=== PATIENT | male | born 1970 | race Caucasian/White ===

== ENCOUNTER 2019-09-08 13:57 | Emergency (ER) | payer OTHER ==
[~2019-09-08] VITALS: Ht 167.6 cm; Wt 76.7 kg
[2019-09-08] MEDS ORDERED: PERCOCET 5-3251 EACH PO (14:12)
[2019-09-08] MEDS ORDERED: GLUCOPHAGE500 MG PO (14:12)
[2019-09-08] MEDS ORDERED: TRAMADOL 50 MG50 MG PO (14:12)
[2019-09-08] MEDS ORDERED: METFORMIN HCL500 M3 PO (14:12)
[2019-09-08 14:37] LABS: URINE BILIRUBIN NEGATIVE (Negative); URINE BLOOD TRACE (Negative); URINE CLARITY CLEAR; URINE COLOR YELLOW; URINE GLUCOSE-RANDOM 3+ (Negative); URINE KETONES NEGATIVE (Negative); URINE LEUKOCYTES-REFLEX NEGATIVE (Negative); URINE NITRITE-REFLEX NEGATIVE (Negative); URINE PROTEIN 3+ (Negative); URINE SPECIFIC GRAVITY >= 1.030 (1.005-1.030); URINE UROBILINOGEN 0.2 E.U./dl (0.2-1.0)
[2019-09-08 14:43] LABS: BACTERIA-REFLEX None Seen /HPF (None Seen); MUCUS 4-6 Moderate strn/LPF (None Seen); SQUAMOUS NONE SEEN /LPF (0-3); URINE RBC 0-2 Rare /HPF (0-2); URINE WBC-REFLEX 0-5 Rare /HPF (0-5)
[2019-09-08 14:44] LABS: CRYSTALS None Seen /LPF (None Seen); HYALINE CASTS >10 Many /LPF (None Seen)
[2019-09-08 14:55] LABS: ABSOLUTE EOSINOPHILS 0.1 thou/uL (0.0-0.7); ABSOLUTE LYMPHOCYTES 3.1 thou/uL (0.8-5.3); ABSOLUTE MONOCYTES 0.5 thou/uL (0.0-1.2); ABSOLUTE NEUTROPHILS 2.5 thou/uL (1.6-8.1); BASOPHILS 0.4 %; EOSINOPHILS 1.7 %; HEMATOCRIT 39.5 % (42.0-52.0); HEMOGLOBIN 13.3 gm/dL (14.0-18.0); MCH 26.9 pg (26.0-34.0); MCHC 33.8 g/dL (28.0-37.0); MCV 79.6 fL (80.0-100.0); MONOCYTES 7.8 %; NUCLEATED RBCS 0 /100WBC; PLATELET COUNT* 274 thou/uL (150-400); POLYS 40.1 %; RBC 4.96 mil/uL (4.50-6.00); RDW-CV 16.5 % (10.5-14.5); WBC 6.3 thou/uL (4.0-11.0)
[2019-09-08 15:08] LABS: POTASSIUM 4.7 mmol/L (3.5-5.1)
[2019-09-08 15:13] LABS: ALBUMIN 3.1 g/dL (3.4-5.0); TOTAL BILIRUBIN 0.3 mg/dL (<0.1-1.0); TOTAL PROTEIN 8.1 g/dL (6.4-8.2)
[2019-09-08] MEDS ORDERED: KEFLEX500 M1 PO (16:06)
[2019-09-08 16:37] VITALS: BP 156/99
== END 2019-09-08 16:38 | disposition home or self-care (01) ==
LOC: M.ERS 13:57
PROVIDERS: Nurse Practitioner Family
DX: E11.65 Type 2 diabetes mellitus with hyperglycemia (principal); M54.5 Low back pain; Z88.0 Allergy status to penicillin

== ENCOUNTER 2019-09-12 19:03 | Inpatient (IN) | payer OTHER ==
[~2019-09-12] VITALS: Ht 170.2 cm; Wt 72.1 kg
[~2019-09-12 19:03] MED LIST: GLUCOPHAGE500 MG PO; KEFLEX500 M1 PO; METFORMIN HCL500 M3 PO; PERCOCET 5-3251 EACH PO; TRAMADOL 50 MG50 MG PO
[2019-09-12 19:11] VITALS: BP 132/81
[2019-09-12 19:31] LABS: ABSOLUTE EOSINOPHILS 0.1 thou/uL (0.0-0.7); ABSOLUTE LYMPHOCYTES 2.4 thou/uL (0.8-5.3); ABSOLUTE MONOCYTES 0.5 thou/uL (0.0-1.2); ABSOLUTE NEUTROPHILS 2.3 thou/uL (1.6-8.1); BASOPHILS 0.7 %; EOSINOPHILS 2.4 %; HEMATOCRIT 38.6 % (42.0-52.0); LYMPHOCYTES 44.3 %; MCH 26.9 pg (26.0-34.0); MCHC 33.7 g/dL (28.0-37.0); MCV 79.9 fL (80.0-100.0); MONOCYTES 8.8 %; MPV 7.9 fl. (7.2-11.1); NUCLEATED RBCS 0 /100WBC; PLATELET COUNT* 273 thou/uL (150-400); POLYS 43.8 %; RBC 4.83 mil/uL (4.50-6.00); WBC 5.3 thou/uL (4.0-11.0)
[2019-09-12 19:35] LABS: CALCIUM 9.7 mg/dL (8.5-10.1); CREATININE 0.9 mg/dL (0.6-1.3); POTASSIUM 4.7 mmol/L (3.5-5.1)
[2019-09-12 19:42] LABS: ALBUMIN 2.8 g/dL (3.4-5.0); TOTAL BILIRUBIN 0.2 mg/dL (<0.1-1.0); TOTAL PROTEIN 7.5 g/dL (6.4-8.2)
[2019-09-12 19:51] LABS: URINE BILIRUBIN NEGATIVE (Negative); URINE BLOOD TRACE (Negative); URINE CLARITY CLEAR; URINE COLOR YELLOW; URINE GLUCOSE-RANDOM 3+ (Negative); URINE KETONES NEGATIVE (Negative); URINE LEUKOCYTES-REFLEX NEGATIVE (Negative); URINE NITRITE-REFLEX NEGATIVE (Negative); URINE PROTEIN 2+ (Negative); URINE UROBILINOGEN 0.2 E.U./dl (0.2-1.0)
[2019-09-12 20:01] LABS: HYALINE CASTS 4-10 Moderate /LPF (None Seen); MUCUS None Seen strn/LPF (None Seen)
[2019-09-12 20:02] LABS: BACTERIA-REFLEX None Seen /HPF (None Seen); URINE RBC 0-2 Rare /HPF (0-2); URINE WBC-REFLEX None Seen /HPF (0-5)
[2019-09-12 20:03] LABS: CRYSTALS None Seen /LPF (None Seen); SQUAMOUS NONE SEEN /LPF (0-3)
[2019-09-12] MEDS ORDERED: GLIPIZIDE 10 MG10 MG PO (22:24)
[2019-09-12] MEDS ORDERED: METFORMIN HCL500 M3 PO (22:24)
[2019-09-12 22:47] VITALS: BP 140/73
[2019-09-13] VITALS: BP 156/82
--- NOTE | 2019-09-13 05:24 | NUR ---
PATIENT ADMITTED TO UNIT AT APPROXIMATELY [id number] FROM THE ER. PATIENT ALERT AND ORIENTED X 4. VSS ON RA. PATIENT ORIENTED TO ROOM AND POLICIES AND FALL EDUCATION GIVEN AND FALL AGREEMENT SIGNED. PATIENT VERBALIZED UNDERSTANDING. IV IN RIGHT AC-NS @ 100ML/HR. ASSESSMENT CHARTED. PATIENT INSTRUCTED TO USE CALL LIGHT WHEN NEEDING ASSISTANCE. HOURLY ROUNDS MADE. WILL CONTINUE WITH PLAN OF CARE AND NURSING TO MONITOR.
[2019-09-13 08:11] VITALS: BP 142/70
[2019-09-13 16:00] VITALS: BP 114/75
--- NOTE | 2019-09-13 19:00 | NUR ---
PATIENT PLEASANT AND COOPERATIVE W/ ASSESS AND CARES THRU SHIFT. UP TO SHOWER THIS AFTERNOON USING FWW W/ SLOW GAIT, SET UP ASST. IV FLUIDS INFUSING S/O DIFF. SEE MAR. HRLY ROUNDS DONE. RESTING IN BED CURRENTLY, DENIES OTHER NEEDS AT THIS TIME. CALL LIGHT IN REACH. ~TJRN
[2019-09-13 20:31] VITALS: BP 133/86
[2019-09-14 02:05] LABS: GLYCOHEMOGLOBIN (HGB A1C) 11.6 % (4.8-5.6)
[2019-09-14 04:01] LABS: ABSOLUTE EOSINOPHILS 0.2 thou/uL (0.0-0.7); ABSOLUTE LYMPHOCYTES 3.4 thou/uL (0.8-5.3); ABSOLUTE MONOCYTES 0.6 thou/uL (0.0-1.2); ABSOLUTE NEUTROPHILS 2.4 thou/uL (1.6-8.1); BASOPHILS 0.5 %; EOSINOPHILS 2.5 %; HEMOGLOBIN 12.2 gm/dL (14.0-18.0); LYMPHOCYTES 51.9 %; MCH 26.8 pg (26.0-34.0); MCHC 33.1 g/dL (28.0-37.0); MCV 80.9 fL (80.0-100.0); MONOCYTES 8.7 %; MPV 8.2 fl. (7.2-11.1); NUCLEATED RBCS 0 /100WBC; PLATELET COUNT* 256 thou/uL (150-400); POLYS 36.4 %; RBC 4.57 mil/uL (4.50-6.00); RDW-CV 16.9 % (10.5-14.5); WBC 6.6 thou/uL (4.0-11.0)
[2019-09-14 04:30] LABS: CALCIUM 9.5 mg/dL (8.5-10.1); CREATININE 0.7 mg/dL (0.6-1.3); POTASSIUM 4.4 mmol/L (3.5-5.1)
--- NOTE | 2019-09-14 04:59 | NUR ---
PATIENT REPORTED NO PAIN BUT DID HAVE SOME NAUSEA DURING THE SHIFT. HE HAD RELIEF WITH ZOFRAN. HIS PAIN IS WELL CONTROLLED WITH SCHEDULED HYDROCODONE. HE WAS ABLE TO SLEEP THROUGH THE NIGHT. WILL CONTINUE TO MONITOR.
[2019-09-14 07:02] VITALS: BP 170/106
--- NOTE | 2019-09-14 14:33 | NUR ---
SW met with pt to complete initial assessment, introduce self, and SW role. Pt alert, oriented. Pt lives at home alone. Pt said that he had a workman's comp injury so he is not certain whether or not this hospitalization would be related to the same injury or not. Pt does not anticipate any dc needs at this time. SW to continue to follow to assist with safe dc planning if needs arise.
[2019-09-14 16:00] VITALS: BP 137/88
--- NOTE | 2019-09-14 18:40 | NUR ---
ASSESSMENT COMPLETE. PT IS ALERT AND ORIENTED X4. PT GIVEN PRN PAIN MEDICATION SCHEDULED. PT GIVEN IV ABX AND FLUIDS SCHEDULED. UROLOGY CONSULT. ACCU CHECK ACHS. ZOFRAN GIVEN NEEDED FOR NAUSEA. PT IS ON ROOM AIR, VSS. PT USES URINAL NEEDED. PT IS UP ONE ASSIST WITH WALKER AND GAIT BELT. PT AMBULATED IN HALLWAY TODAY. SEE ASSESSMENT AND VITALS FOR OTHER DETAILS. CALL LIGHT WITHIN REACH, WILL CONTINUE PLAN OF CARE
[2019-09-14 20:43] VITALS: BP 142/73
[2019-09-15 04:57] LABS: ABSOLUTE EOSINOPHILS 0.1 thou/uL (0.0-0.7); ABSOLUTE LYMPHOCYTES 3.8 thou/uL (0.8-5.3); ABSOLUTE MONOCYTES 0.6 thou/uL (0.0-1.2); ABSOLUTE NEUTROPHILS 3.2 thou/uL (1.6-8.1); BASOPHILS 0.4 %; EOSINOPHILS 1.9 %; HEMOGLOBIN 11.5 gm/dL (14.0-18.0); LYMPHOCYTES 49.1 %; MCH 26.7 pg (26.0-34.0); MCHC 32.9 g/dL (28.0-37.0); MCV 81.1 fL (80.0-100.0); MONOCYTES 7.3 %; MPV 8.2 fl. (7.2-11.1); NUCLEATED RBCS 0 /100WBC; PLATELET COUNT* 257 thou/uL (150-400); POLYS 41.3 %; RBC 4.32 mil/uL (4.50-6.00); RDW-CV 16.7 % (10.5-14.5); WBC 7.8 thou/uL (4.0-11.0)
[2019-09-15 05:06] LABS: CALCIUM 8.8 mg/dL (8.5-10.1); CREATININE 0.7 mg/dL (0.6-1.3); POTASSIUM 4.6 mmol/L (3.5-5.1)
--- NOTE | 2019-09-15 05:14 | NUR ---
PT SLEPT FAIRLY WELL OVERNIGHT. RFA IVF INFUSING PER PUMP. RECEIVED SCHEDULED PAIN MED WITH GOOD RESULT. USING URINAL TO VOID YELLOW URINE. HS ACCUCHECK 220, INSULIN GIVEN WITH SNACK. AM LABS DRAWN. ABLE TO USE CALL LITE AND MAKE NEEDS KNOWN. AOX4, PLEASANT AND COOPERATIVE. HOPEFUL FOR DISCHARGE HOME TODAY. BLADDER SCAN PERFORMED POST VOID OF 300 WITH 42 RESIDUAL NOTED.
[2019-09-15 07:25] VITALS: BP 153/82
[2019-09-15 12:00] VITALS: BP 153/82
[2019-09-15] MEDS ORDERED: HYDROCODON-ACE1 EAC7 PO (13:03)
[2019-09-15] MEDS ORDERED: CEFDINIR300 MG PO (13:04)
[2019-09-15 14:16] VITALS: BP 153/82
[2019-09-15 14:17] VITALS: BP 153/82
[2019-09-15 14:36] VITALS: BP 153/82
--- NOTE | 2019-09-15 14:40 | NUR ---
PATIENT DC HOME. INSTRUCTIONS GIVEN. PT WILL FOLLOW UP WITH UROLOGY. ANTIBIOTICS CALLED IN TO PHARMACY. PT GIVEN SCRIPT FOR PAIN MEDICATION. ALL BELONGINGS SENT. SEE ASSESSMENT AND VITALS FOR OTHER DETAILS
[2019-09-16] MEDS ORDERED: ZOFRAN ODT4 MG PO (02:37)
== END 2019-09-15 14:36 | disposition home or self-care (01) | DRG 690 ==
LOC: M.ERS 19:03 → M.TBA-ER 21:36 → M.3W 21:36
PROVIDERS: Internal Medicine; Physician Assistant; ADMIT Internal Medicine
DX: N12 Tubulo-interstitial nephritis, not specified as acute or chronic (principal); N13.4 Hydroureter; E11.65 Type 2 diabetes mellitus with hyperglycemia; R35.0 Frequency of micturition; E86.0 Dehydration; Z88.0 Allergy status to penicillin; Z79.84 Long term (current) use of oral hypoglycemic drugs; Z23 Encounter for immunization

== ENCOUNTER 2019-09-15 23:45 | Emergency (ER) | payer OTHER ==
[~2019-09-15] VITALS: Ht 170.2 cm; Wt 77.1 kg
[~2019-09-15 23:45] MED LIST changes: +CEFDINIR300 MG PO; +GLIPIZIDE 10 MG10 MG PO; +HYDROCODON-ACE1 EAC7 PO
[2019-09-16 00:29] LABS: URINE BILIRUBIN NEGATIVE (Negative); URINE BLOOD TRACE (Negative); URINE CLARITY CLEAR; URINE COLOR YELLOW; URINE GLUCOSE-RANDOM 3+ (Negative); URINE KETONES NEGATIVE (Negative); URINE LEUKOCYTES-REFLEX NEGATIVE (Negative); URINE NITRITE-REFLEX NEGATIVE (Negative); URINE PROTEIN 2+ (Negative); URINE UROBILINOGEN 0.2 E.U./dl (0.2-1.0)
[2019-09-16 00:43] LABS: MUCUS None Seen strn/LPF (None Seen); SQUAMOUS NONE SEEN /LPF (0-3); URINE RBC 0-2 Rare /HPF (0-2)
[2019-09-16 00:44] LABS: BACTERIA-REFLEX None Seen /HPF (None Seen); CRYSTALS None Seen /LPF (None Seen); HYALINE CASTS 0-3 Few /LPF (None Seen)
[2019-09-16 00:45] LABS: URINE WBC-REFLEX 0-5 Rare /HPF (0-5)
[2019-09-16] MEDS ORDERED: ZOFRAN ODT4 MG PO (02:37)
[2019-09-16 02:50] VITALS: BP 150/80
== END 2019-09-16 02:50 | disposition home or self-care (01) ==
LOC: M.ERS 23:45
PROVIDERS: Emergency Medicine
DX: R11.10 Vomiting, unspecified (principal); R10.10 Upper abdominal pain, unspecified; Z88.0 Allergy status to penicillin

== ENCOUNTER 2021-10-29 09:23 | Emergency (ER) | payer MEDICAID ==
[~2021-10-29] VITALS: Ht 170.2 cm; Wt 81.7 kg
[~2021-10-29 09:23] MED LIST changes: +ZOFRAN ODT4 MG PO
[2021-10-29] MEDS ORDERED: PERCOCET PO (11:55)
[2021-10-29 12:03] VITALS: BP 139/91
== END 2021-10-29 12:04 | disposition home or self-care (01) ==
LOC: M.ERS 09:23
DX: M79.605 Pain in left leg (principal); E11.9 Type 2 diabetes mellitus without complications; Z79.899 Other long term (current) drug therapy; Z88.0 Allergy status to penicillin